=== PATIENT | male | born 1965 | race African-American/Black ===

== ENCOUNTER 2017-01-16 23:36 | Inpatient (IN) | payer OTHER ==
[~2017-01-16] VITALS: Ht 172.7 cm; Wt 125.0 kg
--- NOTE | ~2017-01-16 | CT71 ---
[facility] A Service of [facility] RADIOLOGY TEXT RESULTS PATIENT: ISHMAEL TEJEDA LOCATION: [facility]06-25 : [birth year] UNIT #: [id number] AGE: [address]: Gaetano Rossi MD SEX: M ORDER DR: [id number] [facility] [address] [place], [place] [address] [id number] I MR#: [id number] Acc #: [id number] NAME: ISHMAEL TEJEDA : 1965 SEX: M STUDY DATE/TIME: 01/17/2017 01:40 UNIT: [facility] ROOM: [facility] STUDY DESCRIPTION: CT Head Wo Contrast Attending Physician: Gaetano Rossi M.D. Referring Physician: No Primary Care Physician Ordering Physician: Otis De La Cruz D.O. Primary Care Physician: No Primary Care Physician MEDICAL IMAGING REPORT This report is preliminary unless electronic signature is present EXAM Head CT 01/17 at 0140. INDICATIONS Headache for 1 day with weakness and nausea and vomiting for 2 days. COMPARISON None. TECHNIQUE This CT exam was performed with one or more of the following radiation dose reduction techniques: Automatic exposure control, adjustment of mA and/or kV according to patient size, and iterative reconstruction. FINDINGS Axial images were obtained from the base to the vertex without contrast. There is generalized atrophy. Ventricular size and configuration are within normal limits. There is an old right cerebellar infarct. No acute infarct or hemorrhage is seen. There are no masses. No skull fracture. IMPRESSION Generalized atrophy with an old right cerebellar infarct. No acute findings. Dictated by... Phani Parson Jr., M.D. THIS IS AN ELECTRONICALLY VERIFIED REPORT Phani Parson Jr., M.D. at 01/17/2017 9:40 PM RLK/fredis TD: 01/17/2017 09:50 JOB #: [id number] [facility] A Service [facility] RADIOLOGY TEXT RESULTS PATIENT: ISHMAEL TEJEDA LOCATION: [facility] 4706-25 : [birth year] UNIT #: [id number] AGE: [address]: Gaetano Rossi MD SEX: M ORDER DR: MEDICAL IMAGING REPORT Page 1 of 1 COPY
--- NOTE | ~2017-01-16 | CO ---
Unit #: [id number] #: [id number] Patient: KIN TEJEDA [id number] [address] [place], [place] [address] [id number] I MR#: [id number] NAME: KIN TEJEDA ROOM: 471 Age: 51 Sex: M Admission Date: 01/17/2017 : 1965 Attending Physician: Gaetano Rossi M.D. Consultation Date: 01/17/2017 CONSULTATION REPORT REASON FOR CONSULTATION Renal insufficiency. Thank you very much for asking me to see this patient in consultation. HISTORY OF PRESENT ILLNESS Mr. Kin Tejeda is a 51-year-old male, who presented to the hospital with 2 days history of headache, nausea, vomiting, and not able to keep anything down for couple of days. He came in, started having spiking fevers and then having some right-sided abdominal discomfort as well as some pain in his lower leg. The patient was felt to have a left lower leg cellulitis and was started on Zosyn and Zyvox. The patient was noted upon presentation at 1:00 a.m. last night to have a creatinine of 3.4, potassium of 5.2; at 11:00 a.m. today, it was 51 and 3.9 BUN and creatinine respectively with potassium of 5.6. Because of this, I was asked to see the patient. The patient just was up here visiting from [place]. He says he has seen a kidney doctor before. He cannot tell me why he has abnormal kidney function, but he states he has been towards stage IV. He currently is without any vomiting now. He still had not eaten a lot. His headache has resolved. In the ER, he was noted to have a CT scan of his abdomen and pelvis. This showed an IVC filter, some stranding of both kidneys. No stones. No hydronephrosis. He did have a high exophytic upper part of the right kidney about 1.5 cm. He had a chest x-ray showed cardiomegaly. He denies any nonsteroidal use. He did say he had "gout" a few weeks ago. PAST MEDICAL HISTORY History of insulin-dependent diabetes mellitus, history of hypertension, history of PE/DVT I think in 2012, history of congestive heart failure, history of anemia, history of chronic kidney disease as mentioned above. MEDICATIONS At home include Amaryl, [place], potassium, Lasix, Imdur, Coumadin, insulin, aspirin, Edarbyclor 40/25, carvedilol 25 mg b.i.d., folic acid, clonidine 0.2 b.i.d., hydralazine 100 t.i.d. Here, he was started on Zosyn and Zyvox, his potassium, his Lasix. His Edarbyclor have been on hold. ALLERGIES Include shrimp. FAMILY HISTORY Positive for diabetes and heart disease. SOCIAL HISTORY Unit #: [id number] #: [id number] Patient: KIN TEJEDA He is from [place]. Does not smoke. No alcohol. PHYSICAL EXAMINATION GENERAL: He is alert. VITAL SIGNS: T-max is 103.2, pulse 83 to 119, blood pressure 114 to 140 over 59 to 70. HEENT: Normocephalic and atraumatic. Pupils are equal, round, and reactive to light. Extraocular muscles are intact. Hearing appears to be normal. Mouth is clear. No erythema. No exudate. NECK: Supple. No adenopathy. CARDIAC: He appears to have a regular rhythm without a rub. No S3 or S4. LUNGS: Clear bilaterally. No wheezes, rhonchi, or rales. ABDOMEN: Obese, bowel sounds positive. Nontender. Soft. EXTREMITIES: He has some erythema in his left lower leg. He has no edema in his right lower leg. NEUROLOGIC: Appears to be intact motor and sensory grossly. : Deferred. DIAGNOSTIC STUDIES LABORATORY RESULTS: This afternoon showed a sodium of 133, potassium 5.6, chloride is 106, bicarb is 22, BUN 51, creatinine is 3.9 with a glucose of 208, calcium 7.1. Liver function tests are normal. INR is 2.4 with a PTT of 68. His hemoglobin is 8.2 down to 7.7, white count is 22,900, platelets 242,000. He had 11 bands. UA shows specific gravity of 1.014, 2+ protein, 1+ blood, but 0 to 2 rbc's, 0 to 2 wbc's. IMAGING STUDIES: His chest x-ray and other x-rays has been mentioned above. ASSESSMENT AND PLAN 1. Renal insufficiency. This is a gentleman who probably has chronic kidney disease from his history and probably related to diabetes, but again I do not have any further workup or treatment. Certainly, his creatinine is worse currently from 3.4 to 3.9. Certainly, it could be related to acute tubular necrosis from infection versus hypotension versus other. We will check a bladder scan postvoid residual. Repeat some urine studies including urine sodium, urine eosinophils. We would like to check random protein and creatinine ratio. Check CPK since he has some blood positive, but no rbc's, make sure he has not had rhabdo. We will continue to follow, agree with holding his angiotensin receptor juhi as well as his diuretics for now and continue IV fluids with normal saline. 2. Hyperkalemia secondary to renal insufficiency, hyperglycemia, acidosis, etc. Kayexalate x1. Start oral bicarbonate. Recheck later this evening. 3. Anemia. The patient with decreased hemoglobin down to 7.7. We will recheck later tonight. Needing further workup and treatment per primary. 4. Hypertension. I agree with holding his medications as above. Continue his other medications. We will follow trends and probably restart ARB once things improve for renal protective effect and proteinuria. 5. Diabetes mellitus per primary. 6. History of deep vein thrombosis and pulmonary embolism. The patient does have an increased PTT. I am not sure he got heparin where. We will go ahead and check an ROSSY, anticardiolipin antibody, it looks anticoagulant. Dictated by... Unit #: [id number] #: [id number] Patient: KIN TEJEDA M.D. WAD/gennaro TD: 01/18/2017 05:46 JOB #: [id number] CONSULTATION REPORT Page 1 of 1 X Pamela Mayer MD X CONSULTATION REPORT
--- NOTE | ~2017-01-16 | CT4 ---
[facility] A Service of [facility] & [facility] RADIOLOGY TEXT RESULTS PATIENT: ISHMAEL TEJEDA LOCATION: [facility] 471-01 : [birth year] UNIT #: [id number] AGE: [address]: Gaetano Rossi MD SEX: M ORDER DR: [id number] [facility] [address] [place], [place] [address] [id number] I MR#: [id number] Acc #: [id number] NAME: ISHMAEL TEJEDA : 1965 SEX: M STUDY DATE/TIME: 01/17/2017 01:46 UNIT: [facility] ROOM: 471 STUDY DESCRIPTION: CT Abd and Pelv Wo Cont Attending Physician: Gaetano Rossi M.D. Referring Physician: Primary Care Physician No Ordering Physician: Otis De La Cruz D.O. Primary Care Physician: Primary Care Physician No MEDICAL IMAGING REPORT This report is preliminary unless electronic signature is present EXAM CT abdomen and pelvis 01/17/2017 at 01:46 INDICATION Generalized abdominal pain with weakness, nausea, and vomiting for 2 days. TECHNIQUE Axial noncontrast images were obtained through the abdomen and pelvis. Multiplanar reformats were obtained. No comparison. This CT examination was performed with one or more of the following radiation dose reduction techniques: automatic exposure control, adjustment of mA and/or kV according to patient size, and iterative reconstruction. FINDINGS ABDOMEN: Heart is enlarged. Lung bases are clear. Gallbladder is normal. No biliary obstruction is seen. IVC filter is present. No renal or ureteral stones are seen. There is no hydronephrosis. There is some fat stranding around both kidneys which extends to some degree along the course of the ureters. This can be seen as a normal finding but can also reflect urinary tract infection. Correlate with urinalysis results. Unenhanced solid organs otherwise are normal. The unopacified GI tract is normal. PELVIS: There are no lower ureteral stones. The bladder is normal. Unopacified GI tract is grossly normal. There is no free fluid. The appendix is not definitely seen, but there is nothing to suggest acute appendicitis. There are bilateral L5 pars defects without spondylolisthesis at L5-S1. IMPRESSION 1. No renal or ureteral stones. No hydronephrosis. 2. Fat stranding around both kidneys and at least partially along the STS. [facility] A Service of [facility] RADIOLOGY TEXT RESULTS PATIENT: ISHMAEL TEJEDA LOCATION: [facility] 471-01 : [birth year] UNIT #: [id number] AGE: [address]: Gaetano Rossi MD SEX: M ORDER DR: course of both ureters. While this can be seen as a normal finding, it can also be indicative of pyelonephritis in an ascending infection. Correlate with urinalysis results. 3. Not mentioned above is a exophytic lesion from the upper pole of the right kidney measuring about 1.5 cm. This is probably a cyst. Nonemergent renal ultrasound is recommended for follow up purposes. 4. Grossly normal unopacified GI tract. The appendix is not clearly seen, but there is nothing to suggest acute appendicitis. 5. IVC filter in place. Dictated by... Phani Parson Jr., M.D. THIS IS AN ELECTRONICALLY VERIFIED REPORT Phani Parson Jr., M.D. at 01/17/2017 9:40 PM AMARJIT/hay TD: 01/17/2017 10:19 JOB #: [id number] MEDICAL IMAGING REPORT Page 1 of 1 COPY
--- NOTE | ~2017-01-16 | DS ---
Unit #: [id number] #: [id number] Patient: ISHMAEL TEJEDA [id number] [address] [address] [id number] I MR#: [id number] NAME: ISHMAEL TEJEDA ROOM: 221 Age: 51 Sex: M Admission Date: 01/17/2017 : 1965 Discharge Date: 01/23/2017 Attending Physician: Kathy Vila M.D. Referring Physician: No Primary Care Physician Primary Care Physician: No Primary Care Physician DISCHARGE SUMMARY DISCHARGE DIAGNOSES 1. Acute kidney injury. 2. Chronic kidney disease stage 4. 3. Left leg wound with cellulitis. 4. Hypertension uncontrolled. 5. History of chronic diastolic heart failure. 6. Glaucoma. 7. History of pulmonary embolism and deep venous thrombosis, status post IVC filter on Coumadin, currently supratherapeutic INR, hold Coumadin until recheck by primary care physician. 8. Right kidney lesion, likely cyst. Patient needs to follow with primary care physician for that as an outpatient. Cyst is very small. 9. Hyperkalemia secondary to acute kidney injury. 10. Metabolic acidosis secondary to acute kidney injury. 11. Hyperuricemia. 12. Hypocalcemia. 13. Mild to moderate protein malnutrition. 14. Iron deficiency anemia. 15. Mild to moderate protein malnutrition. 16. Iron deficiency anemia and also could be from chronic kidney disease. CONSULTANTS Dr. Mayer. PROCEDURES None. DIAGNOSTIC STUDIES LABORATORY DATA: Sodium 138, potassium 5.3, carbon dioxide 21, BUN 74, creatinine 3.9, calcium 8.0, INR 6.1, WBC 11.7, hemoglobin 8.3, platelets 215. Blood cultures negative. Occult blood negative. Uric acid 11.3. Wound cultures are growing MRSA. IMAGING STUDIES: Ultrasound of the kidneys shows a small right upper pole renal cyst. Both kidneys are not obstructed. Ultrasound of the lower extremities are negative for DVT. ALLERGIES Shrimp. DISCHARGE MEDICATIONS 1. Prednisone tapering dose. 2. Sodium bicarbonate 1300 mg p.o. b.i.d. Unit #: [id number] #: [id number] Patient: ISHMAEL TEJEDA 3. Combigan eye drops b.i.d. 4. Flovent 250 mcg inhalation daily at bedtime. 5. Hold the Coumadin on 01/23/2017 and 01/24/2017. Recheck PT and INR on 01/25/3017 and follow with PCP with results. Resume Coumadin if INR is less than or equal to 3.0. 6. Coreg 25 p.o. b.i.d. 7. Lasix 80 daily. 8. Clonidine 0.2 mg p.o. b.i.d. 9. Hydralazine 100 p.o. three times daily. 10. Humalog 75/25 20 units subcu b.i.d. 11. Ferrous gluconate 324 mg b.i.d. [id number]. 12. Santyl apply topically. 13. Aspirin 81 daily. 14. Lortab 5 mg q.4-6 p.r.n. pain. 15. Isosorbide mononitrate ER 60 mg p.o. daily. 16. Nitroglycerin 0.4 sublingual p.r.n. chest pain. 17. Folic acid 1 mg daily. 18. Clindamycin 300 p.o. q.8 for three more days. HOSPITALIZATION COURSE 51-year-old admitted because of left leg cellulitis. Acute kidney injury with a chronic kidney disease, stage 4 with hyperkalemia and metabolic acidosis. Patent is seen by nephrology. Ultrasound is negative for obstruction. Patient received IV fluids. Creatinine is back to his baseline, which is 3.9. He has stage 4 chronic kidney disease. Patient needs close monitoring by his mexican food maker hand as an outpatient. Continue the bicarbonate p.o. Left leg wound with cellulitis: Patient is seen by a surgeon. Growing MRSA IV Clindamycin started. Patient will be discharged on p.o. Clindamycin and followed with PCP and also follow with LSA in 8-10 days time. Continue with local wound, as per LSA recommendations. History of DVT and PE: Patient is on Coumadin. Currently supratherapeutic INR. Hold Coumadin today and tomorrow and recheck PT and INR on 01/25/2017, follow with PCP results. Patient did not live in [place]. I did arrange for home health but he wants to see his own doctors. I recommend closely. Strictly that he needs to have a PT/INR checked closely. He understands the recommendations. Her verbalized that he understood it. Hypertension uncontrolled: Resume all his medicines. Nephrology was closely following. Anemia, secondary to iron deficiency and also chronic kidney disease. Patient received iron in September (1) . Follow with PCP. Okay to discharge home as per LSA and nephrology. DISCHARGE INSTRUCTIONS 1. Discharge home with home health. 2. PT/INR on 01/25/2017, follow with PCP with results. Hold Coumadin today and on 01/24/2017. 3. Follow with his mexican food maker hand in two to three weeks time for chronic kidney disease, stage 4. 4. Please note that patient needs close monitoring of his PT/INR and close monitoring of his creatinine by his PCP or his mexican food maker hand. Unit #: [id number] #: [id number] Patient: ISHMAEL TEJEDA 5. Discharge time taken is 35 minutes. Dictated by... Praveen Beebe/irma TD: 01/24/2017 07:41 JOB #: [id number] DISCHARGE SUMMARY Page 1 of 1 X Kathy Vila MD X DISCHARGE SUMMARY
--- NOTE | ~2017-01-16 | US85 ---
[facility] A Service [facility] RADIOLOGY TEXT RESULTS PATIENT: ISHMAEL TEJEDA LOCATION: [place] [address] : [birth year] UNIT #: [id number] AGE: [address]: Gaetano Rossi MD SEX: M ORDER DR: [id number] [place] [id number] [facility]. [place], [place] [address] [id number] I MR#: [id number] Acc #: [id number] NAME: ISHMAEL TEJEDA : 1965 SEX: M STUDY DATE/TIME: 01/18/2017 16:38 UNIT: [facility] ROOM: [facility] STUDY DESCRIPTION: LE Veins Unilat or Ltd Stdy Attending Physician: Gaetano Rossi M.D. Referring Physician: No Primary Care Physician Ordering Physician: Gaetano Rossi M.D. Primary Care Physician: No Primary Care Physician MEDICAL IMAGING REPORT This report is preliminary unless electronic signature is present EXAM Ultrasound lower extremities/veins unilateral or limited study. CLINICAL HISTORY Left lower extremity swelling and pain for 2 weeks. Remote history of DVT. COMPARISON None available. TECHNIQUE Venous ultrasound examination of the left lower extremity was performed using grayscale, spectral Doppler and color flow Doppler imaging. FINDINGS The examination is negative. There is no evidence of left lower extremity deep venous thrombus from the groin to the lower calf. Visualized greater saphenous vein is also patent. IMPRESSION Negative examination. No evidence of left lower extremity DVT. Dictated by... Jacinto Hutchinson M.D. THIS IS AN ELECTRONICALLY VERIFIED REPORT Jacinto Hutchinson M.D. at 01/18/2017 9:32 PM MADDIE/homero TD: 01/18/2017 20:16 JOB #: [id number] [facility] A Service [facility] RADIOLOGY TEXT RESULTS PATIENT: ISHMAEL TEJEDA LOCATION: [facility] : 61 UNIT #: [id number] AGE: [address]: Gaetano Rossi MD SEX: M ORDER DR: MEDICAL IMAGING REPORT Page 1 of 1 COPY
--- NOTE | ~2017-01-16 | HP ---
Unit #: [id number] #: [id number] Patient: ISHMAEL TEJEDA [id number] [address] [address] [id number] I MR#: [id number] NAME: ISHMAEL TEJEDA ROOM: 471 Age: 51 Sex: M Admission Date: 01/17/2017 : 1965 Attending Physician: Mariama Lemus M.D. Referring Physician: No Primary Care Physician Primary Care Physician: No Primary Care Physician HISTORY AND PHYSICAL CHIEF COMPLAINT Left leg wound with cellulitis, fevers, nausea, vomiting and headache. HISTORY This pleasant 51-year-old male with IDDM, hypertension, previous PE and DVT, chronic kidney disease, is admitted for a fever. The patient states that he was well until two days ago when he developed nausea, vomiting, frontal headache with fever, sweats, chills and some right-sided abdominal discomfort, which was transient. He presented to this emergency department early this morning with a temperature of 103.2. He complains of left leg pain. On examination he has a wound over the distal left leg, and there is significant erythema noted with tenderness. In the ER he was given Tylenol, boluses with saline, given Zofran and morphine. Currently is feeling somewhat improved. He has a hematocrit of 8.2, denies melena or hematochezia, states that he has chronic anemia. His INR is therapeutic at 2.4. PAST MEDICAL HISTORY 1. PE/DVT 2012, status post IVC filter placement, anticoagulated. 2. Gout. 3. IDDM since 2012. 4. Essential hypertension. 5. Glaucoma. 6. History of congestive heart failure, with reportedly negative cardiac catheterization for CAD. 7. Stage 4 chronic kidney disease. 8. Chronic anemia. 9. Left eye surgery. 10. Hernia repair. ALLERGIES Shrimp. HOME MEDICATIONS Nitroglycerin p.r.n.; Flovent nasal spray; aspirin 81 mg daily; Edarbyclor 40/25 daily; carvedilol 25 mg b.i.d.; folic acid 1 mg daily; clonidine 0.2 mg b.i.d. p.r.n.; potassium 10 mEq daily; Amaryl 4 mg daily; [place] 5/325 q.4-6 hours as needed; hydralazine 100 mg t.i.d.; Lasix 80 mg daily; Imdur 60 mg daily; Coumadin 5 mg Sunday, Sunday and Sunday with 2.5 mg the rest of the week; Combigan eye drops 1 drop OU b.i.d.; Humalog mix 75/25 25 units subcu b.i.d. FAMILY HISTORY Unit #: [id number] #: [id number] Patient: ISHMAEL TEJEDA Diabetes mellitus and CAD. SOCIAL HISTORY The patient is visiting from [place]. He is a lifelong nonsmoker and does not drink alcohol. REVIEW OF SYSTEMS Notable for left leg pain, nausea, vomiting, headache, fever, sweats, chills, PE/DVT, gout, diabetes, hypertension, congestive heart failure, chronic kidney disease, anemia, above mentioned surgeries. All other systems were reviewed and otherwise negative. PHYSICAL EXAMINATION GENERAL: Pleasant, obese, 51-year-old male currently in no acute distress. VITAL SIGNS: Temperature 103.2, pulse 119, respirations 20, initial blood pressure 115/63, O2 saturation is 99% on room air. HEENT: Eyes - PERRLA. Extraocular muscles are intact. Pharynx is benign with poor dentition. NECK: Supple without adenopathy or thyromegaly. CHEST: Clear. CARDIAC: Normal S1 and S2 without S3, S4 or murmur. ABDOMEN: Bowel sounds are present. No hepatosplenomegaly, tenderness, or masses. EXTREMITIES: Notable for an open superficial distal left leg lesion with surrounding cellulitis. Pedal pulses are present. No ulcers on the feet. NEUROLOGIC: Patient is awake, alert, and oriented. Cranial nerves are intact. Equal strength throughout. DIAGNOSTIC STUDIES ADMISSION LABS: Hematocrit is 25.7, normal MCV, white blood count is 21.3, normal platelet count, 3 bands noted. INR 2.4. SMA 12 - glucose 203, BUN 51, creatinine 3.4, potassium 5.2, CO2 21, lactic acid is normal. Cardiac markers are negative. Urine - 2+ protein but no white cells or red cells. IMAGING STUDIES: Head CT - old right cerebellar infarct. Chest x-ray - cardiomegaly, some central vascular congestion. CT scan of the abdomen and pelvis show some fat stranding around the kidneys bilaterally. There is also an exophytic lesion right kidney, probably a cyst, although patient will need at some port a renal ultrasound. ASSESSMENT 1. Left wound with cellulitis, fevers, nausea, vomiting, and headache. 2. IDDM. 3. Stage 4 chronic kidney disease. 4. Essential hypertension. 5. History of congestive heart failure. Patient denies CAD. 6. Glaucoma. 7. History of PE and DVT, status IVC filter, anticoagulated. 8. Lesion in the right kidney, probably a cyst but the patient needs an ultrasound non-emergently. PLANS 1. IV fluids. 2. Zosyn and Zyvox pending blood and wound cultures. Unit #: [id number] #: [id number] Patient: ISHMAEL TEJEDA 3. Will ask for Bactroban ointment and dressing changes. 4. Hold diuretics until diet is advanced. 5. Recheck labs at noon and discontinue potassium. 6. Adjust insulin until diet is advanced. 7. Will hold Edarbyclor until diet is advanced. Dictated by Praveen Franco/ts TD: 01/17/2017 06:06 JOB #: [id number] HISTORY AND PHYSICAL Page 1 of 1 X Mariama Lemus MD X HISTORY AND PHYSICAL
--- NOTE | ~2017-01-16 | CR252 ---
[facility] A Service of [facility] RADIOLOGY TEXT RESULTS PATIENT: ISHMAEL TEJEDA LOCATION: [facility]1-01 : 61 UNIT #: [id number] AGE: [address]: Gaetano Rossi MD SEX: M ORDER DR: [id number] [facility] [address] [place], [place] [address] [id number] I MR#: [id number] Acc #: [id number] NAME: ISHMAEL TEJEDA : 1965 SEX: M STUDY DATE/TIME: 01/17/2017 01:18 UNIT: [facility] ROOM: [facility] STUDY DESCRIPTION: CR Tibia and Fibula 2 Views Lt Attending Physician: Gaetano Rossi M.D. Referring Physician: Primary Care Physician No Ordering Physician: Otis De La Cruz D.O. Primary Care Physician: Primary Care Physician No MEDICAL IMAGING REPORT This report is preliminary unless electronic signature is present EXAM Left tib-fib, 01/17 at 01:18 INDICATION Garcia wounds with pain for 3 days. History of diabetes. FINDINGS AP and lateral views of the left lower leg were obtained. There is no fracture or malalignment. There is no soft tissue gas or radiopaque foreign body. IMPRESSION Negative left lower leg. Dictated by... Phani Parson Jr., M.D. THIS IS AN ELECTRONICALLY VERIFIED REPORT Phani Parson Jr., M.D. at 01/17/2017 9:40 PM AMARJIT/lavon TD: 01/17/2017 09:46 JOB #: [id number] MEDICAL IMAGING REPORT Page 1 of 1 COPY
--- NOTE | ~2017-01-16 | US77 ---
[facility] A Service of [facility] & [facility] / [facility] RADIOLOGY TEXT RESULTS PATIENT: ISHMAEL TEJEDA LOCATION: [place] [address]- : [birth year] UNIT #: [id number] AGE: [address]: Gaetano Rossi MD SEX: M ORDER DR: [id number] [facility] [address] [place], [place] [address] [id number] I MR#: [id number] Acc #: [id number] NAME: ISHMAEL TEJEDA : 1965 SEX: M STUDY DATE/TIME: 01/17/2017 19:19 UNIT: [facility] ROOM: [facility] STUDY DESCRIPTION: US Kidney Bilateral Complete Attending Physician: Gaetano Rossi M.D. Referring Physician: Primary Care Physician No Ordering Physician: Edy Mayer M.D. Primary Care Physician: Primary Care Physician No MEDICAL IMAGING REPORT This report is preliminary unless electronic signature is present EXAM Renal ultrasound 01/17/2017 19:19 INDICATION Chronic kidney disease stage IV. Hypodense lesion seen in right upper kidney on CT scan performed earlier today. Elevated creatinine. Low GFR of 19. FINDINGS Sonographic evaluation is performed of the kidneys in multiple planes. Comparison made with CT abdomen from 01/17/2017 at 0146 hours. The right kidney measures 12.6 cm in ifxz-kk-[id number] length. It contains a 1.2 cm cyst in the upper pole corresponding to the lesion on CT. Left kidney measures about 12.4 cm in nztn-jy-ccsh length. Both kidneys are otherwise unremarkable and nonobstructed. Urinary bladder grossly normal. IMPRESSION Small right upper pole renal cyst corresponding to CT abnormality. Both kidneys are nonobstructed. Dictated by... Phani Parson Jr., M.D. THIS IS AN ELECTRONICALLY VERIFIED REPORT Phani Parson Jr., M.D. at 01/18/2017 7:18 PM AMARJIT/hay TD: 01/18/2017 06:31 JOB #: [id number] MEDICAL IMAGING REPORT Page 1 of 1 COPY
--- NOTE | ~2017-01-16 | CR72 ---
[facility] A Service of [facility] & [facility] RADIOLOGY TEXT RESULTS PATIENT: ISHMAEL TEJEDA LOCATION: [facility]- : [birth year] UNIT #: [id number] AGE: [address]: Gaetano Rossi MD SEX: M ORDER DR: [id number] [facility] [address] [place], [place] [address] [id number] I MR#: [id number] Acc #: [id number] NAME: ISHMAEL TEJEDA : 1965 SEX: M STUDY DATE/TIME: 12/18/2016 UNIT: [facility] ROOM: [facility] STUDY DESCRIPTION: CR Chest Single View Portable Attending Physician: Gaetano Rossi M.D. Referring Physician: Primary Care Physician No Ordering Physician: Otis De La Cruz D.O. Primary Care Physician: Primary Care Physician No MEDICAL IMAGING REPORT This report is preliminary unless electronic signature is present EXAM Portable chest 01/17 at 01:16 INDICATIONS Weakness and shortness of air 3 days. History of CHF. FINDINGS AP portable chest was obtained. No comparison. Heart is enlarged. There is some central vascular congestion. The lungs are clear. No pneumothorax. IMPRESSION Cardiomegaly with some central vascular congestion. Dictated by... Phani Parson Jr., M.D. THIS IS AN ELECTRONICALLY VERIFIED REPORT Phani Parson Jr., M.D. at 01/17/2017 9:39 PM AMARJIT/carlene TD: 01/17/2017 09:45 JOB #: [id number] MEDICAL IMAGING REPORT Page 1 of 1 COPY
[2017-01-17 01:41] LABS: POC - CKMB 1.2 ng/mL (0.0-7.9); POC - TROPONIN <0.05 ng/mL (<=0.05)
[2017-01-17 02:12] LABS: BASOPHIL% 0.2 % (0-2.5); EOSINOPHIL% 0.1 % (0.0-7.0); HEMATOCRIT 25.7 % (38.0-50.0); HEMOGLOBIN 8.2 gm/dL (13.0-16.0); LYMPHOCYTE# 1.1 X10e3 (1.0-3.5); MEAN CELL VOLUME 87.1 FL (83-96); MEAN CORPUSCULAR HEMOGLOBIN 27.7 PG (28-34); MEAN CORPUSCULAR HGB CONC 31.8 g/dL (30-36); MEAN PLATELET VOLUME 8.7 FL (6.5-11.5); MONOCYTE# 1.2 X10e3 (0-1.0); MONOCYTE% 5.8 % (3.0-12.0); NEUTROPHIL# 18.9 X10e3 (1.5-7.1); NEUTROPHIL% 88.9 % (40-75); PLATELET COUNT 278 X10e3 (140-420); RED BLOOD COUNT 2.94 X10e (3.90-5.60); RED CELL DISTRIBUTION WIDTH 16.3 % (11.0-15.5); WHITE BLOOD COUNT 21.3 X10e3 (4.0-10.5)
[2017-01-17 02:14] LABS: DIFF IND YES
[2017-01-17 02:22] LABS: INR 2.4; PARTIAL THROMBOPLASTIN TIME 68.5 SECONDS (23.5-31.3); PROTHROMBIN TIME (PATIENT) 25.8 SECONDS (10.0-11.7)
[2017-01-17 02:29] LABS: PLATELET ESTIMATE NORMAL (NORMAL)
[2017-01-17 02:30] LABS: ALBUMIN SERUM 3.5 g/dL (3.5-5.0); ANISOCYTOSIS SL; BILIRUBIN, DIRECT 0.1 mg/dL (0.0-0.2); BILIRUBIN,INDIRECT 0.6 mg/dL (0.0-0.9); BILIRUBIN,TOTAL 0.7 mg/dL (0.2-2.0); CALCIUM SERUM 8.6 mg/dL (8.4-10.2); CREATININE SERUM 3.4 mg/dL (0.6-1.4); GLOM FILT RATE Estimated 22.6 mL/min (>60); HYPOCHROMIA SL; POTASSIUM 5.2 mmol/L (3.5-5.1); PROTEIN TOTAL SERUM 8.3 g/dL (6.0-8.3)
[2017-01-17] MEDS ORDERED: NITROGLYGERIN0.4 MG SL (02:49)
[2017-01-17] MEDS ORDERED: ASPIRIN81 MG PO (02:50)
[2017-01-17] MEDS ORDERED: FLOVENT7.9 GM (02:50)
[2017-01-17] MEDS ORDERED: EDARBYCLOR 40-1 EAC1 PO (02:51)
[2017-01-17] MEDS ORDERED: FOLIC ACID1 MG PO (02:51)
[2017-01-17] MEDS ORDERED: CARVEDILOL25 M1 PO (02:51)
[2017-01-17] MEDS ORDERED: CLONIDINE PO (02:52)
[2017-01-17] MEDS ORDERED: POTASSIUM CHLO10 MEQ PO (02:53)
[2017-01-17] MEDS ORDERED: AMARYL PO (02:53)
[2017-01-17] MEDS ORDERED: HYDROCODON-ACE1 EAC7 PO (02:53)
[2017-01-17] MEDS ORDERED: LASIX80 MG PO (02:54)
[2017-01-17] MEDS ORDERED: HYDRALAZINE HC100 MG PO (02:54)
[2017-01-17] MEDS ORDERED: ISOSORBIDE MONO60 M1 PO (02:54)
[2017-01-17] MEDS ORDERED: JANTOVEN5 MG PO (02:55)
[2017-01-17] MEDS ORDERED: COMBIGAN EYE DRO5 ML OU (02:55)
[2017-01-17] MEDS ORDERED: HUMALOG MI100 UNIT/5 SUBQ (03:05)
[2017-01-17 03:21] LABS: URINE SOURCE CLEAN CATCH
[2017-01-17 03:37] LABS: URINE APPEARANCE CLEAR; URINE BILIRUBIN NEG (NEG); URINE BLOOD 1+ (NEG); URINE COLOR YELLOW; URINE GLUCOSE NEG (NEG); URINE KETONE NEG (NEG); URINE LEUKOCYTE ESTERASE NEG (NEG); URINE NITRATE NEG (NEG); URINE PROTEIN 2+ (NEG); URINE SPECIFIC GRAVITY 1.014 (1.003-1.035); URINE UROBILINOGEN 0.2 MG/DL (NEG)
[2017-01-17 03:41] LABS: URBCS1 AUWI 0-2 /[HPF] (0-2); URINE BACTERIA AUWI NEG (NEGATIVE); URINE SQUAMOUS EPITHELIAL CELL NONE SEEN /[HPF]; UWBCS1 AUWI 0-2 (0-5)
[2017-01-17 03:42] LABS: INFLUENZA A NEG (NEG); INFLUENZA B NEG (NEG)
[2017-01-17 03:55] LABS: CULTURE INDICATED? NO; URINE GRANULAR CAST 0-2 /[HPF]
[2017-01-17 08:30] LABS: BASOPHIL# 0.1 X10e3 (0-0.3); BASOPHIL% 0.3 % (0-2.5); EOSINOPHIL% 0.1 % (0.0-7.0); HEMATOCRIT 24.1 % (38.0-50.0); HEMOGLOBIN 7.7 gm/dL (13.0-16.0); LYMPHOCYTE# 1.6 X10e3 (1.0-3.5); LYMPHOCYTE% 6.9 % (17.0-45.0); MEAN CORPUSCULAR HEMOGLOBIN 28.3 PG (28-34); MEAN CORPUSCULAR HGB CONC 32.1 g/dL (30-36); MEAN PLATELET VOLUME 8.7 FL (6.5-11.5); MONOCYTE# 1.5 X10e3 (0-1.0); MONOCYTE% 6.6 % (3.0-12.0); NEUTROPHIL# 19.7 X10e3 (1.5-7.1); NEUTROPHIL% 86.1 % (40-75); PLATELET COUNT 242 X10e3 (140-420); RED BLOOD COUNT 2.74 X10e (3.90-5.60); RED CELL DISTRIBUTION WIDTH 16.2 % (11.0-15.5); WHITE BLOOD COUNT 22.9 X10e3 (4.0-10.5)
[2017-01-17 08:46] LABS: INR 2.3; PROTHROMBIN TIME (PATIENT) 24.7 SECONDS (10.0-11.7)
[2017-01-17 08:51] LABS: BUN/CREATININE RATIO 14.16; CALCIUM SERUM 7.9 mg/dL (8.4-10.2); CREATININE SERUM 3.6 mg/dL (0.6-1.4); GLOM FILT RATE Estimated 21.1 mL/min (>60)
[2017-01-17 08:52] LABS: DIFF IND YES
[2017-01-17 09:04] LABS: POTASSIUM 5.5 mmol/L (3.5-5.1)
[2017-01-17 12:03] LABS: BUN/CREATININE RATIO 13.07; CALCIUM SERUM 7.6 mg/dL (8.4-10.2); CREATININE SERUM 3.9 mg/dL (0.6-1.4); GLOM FILT RATE Estimated 19.1 mL/min (>60)
[2017-01-17 12:09] LABS: POTASSIUM 5.6 mmol/L (3.5-5.1)
[2017-01-17 12:48] LABS: ANISOCYTOSIS SL; PLATELET ESTIMATE NORMAL (NORMAL)
[2017-01-17 18:21] LABS: HEMATOCRIT 20.7 % (38.0-50.0); MEAN CELL VOLUME 87.9 FL (83-96); MEAN CORPUSCULAR HEMOGLOBIN 28.6 PG (28-34); MEAN CORPUSCULAR HGB CONC 32.5 g/dL (30-36); MEAN PLATELET VOLUME 7.9 FL (6.5-11.5); RED BLOOD COUNT 2.36 X10e (3.90-5.60); RED CELL DISTRIBUTION WIDTH 16.4 % (11.0-15.5); WHITE BLOOD COUNT 18.7 X10e3 (4.0-10.5)
[2017-01-17 18:25] LABS: HEMOGLOBIN 6.7 gm/dL (13.0-16.0)
[2017-01-17 18:42] LABS: BUN/CREATININE RATIO 13.68; CREATININE SERUM 3.8 mg/dL (0.6-1.4); GLOM FILT RATE Estimated 19.7 mL/min (>60); POTASSIUM 5.1 mmol/L (3.5-5.1)
[2017-01-17 19:26] LABS: URINE APPEARANCE CLOUDY; URINE BILIRUBIN NEG (NEG); URINE BLOOD TRACE (NEG); URINE COLOR YELLOW; URINE GLUCOSE NEG (NEG); URINE KETONE NEG (NEG); URINE LEUKOCYTE ESTERASE NEG (NEG); URINE NITRATE NEG (NEG); URINE PROTEIN 2+ (NEG); URINE SPECIFIC GRAVITY 1.017 (1.003-1.035)
[2017-01-17 19:28] LABS: URBCS1 AUWI 0-2 /[HPF] (0-2); URINE BACTERIA AUWI NEG (NEGATIVE); URINE SQUAMOUS EPITHELIAL CELL NONE SEEN /[HPF]
[2017-01-17 19:33] LABS: CREATININE,RANDOM URINE 181 mg/dL; SODIUM URINE RANDOM 35 mmol/L; TOTAL PROTEIN,RANDOM URINE 96 mg/dl (<10)
[2017-01-18 02:34] LABS: HEMATOCRIT 25.1 % (38.0-50.0); HEMOGLOBIN 7.9 gm/dL (13.0-16.0); MEAN CELL VOLUME 87.7 FL (83-96); MEAN CORPUSCULAR HEMOGLOBIN 27.5 PG (28-34); MEAN CORPUSCULAR HGB CONC 31.4 g/dL (30-36); RED BLOOD COUNT 2.86 X10e (3.90-5.60); WHITE BLOOD COUNT 18.2 X10e3 (4.0-10.5)
[2017-01-18 02:52] LABS: INR 2.6; PARTIAL THROMBOPLASTIN TIME 74.5 SECONDS (23.5-31.3); PROTHROMBIN TIME (PATIENT) 28.2 SECONDS (10.0-11.7)
[2017-01-18 03:07] LABS: BILIRUBIN,TOTAL 0.6 mg/dL (0.2-2.0); BUN/CREATININE RATIO 13.68; CALCIUM SERUM 7.7 mg/dL (8.4-10.2); CREATININE SERUM 3.8 mg/dL (0.6-1.4); GLOM FILT RATE Estimated 19.7 mL/min (>60); PHOSPHOROUS 3.3 mg/dL (2.5-4.6); POTASSIUM 4.9 mmol/L (3.5-5.1); PROTEIN TOTAL SERUM 7.6 g/dL (6.0-8.3); URIC ACID 10.4 mg/dL (2.6-7.2)
[2017-01-18] MEDS ORDERED: FLOVENT DISKU250 MCG INH (23:24)
[2017-01-19 02:39] LABS: BASOPHIL% 0.3 % (0-2.5); EOSINOPHIL# 0.1 X10e3 (0-0.7); EOSINOPHIL% 0.6 % (0.0-7.0); HEMATOCRIT 22.3 % (38.0-50.0); HEMOGLOBIN 7.1 gm/dL (13.0-16.0); LYMPHOCYTE# 1.1 X10e3 (1.0-3.5); LYMPHOCYTE% 6.9 % (17.0-45.0); MEAN CELL VOLUME 87.5 FL (83-96); MEAN CORPUSCULAR HEMOGLOBIN 27.7 PG (28-34); MEAN CORPUSCULAR HGB CONC 31.6 g/dL (30-36); MEAN PLATELET VOLUME 8.5 FL (6.5-11.5); MONOCYTE# 1.1 X10e3 (0-1.0); MONOCYTE% 7.2 % (3.0-12.0); NEUTROPHIL# 12.9 X10e3 (1.5-7.1); PLATELET COUNT 197 X10e3 (140-420); RED BLOOD COUNT 2.55 X10e (3.90-5.60); RED CELL DISTRIBUTION WIDTH 16.3 % (11.0-15.5); WHITE BLOOD COUNT 15.2 X10e3 (4.0-10.5)
[2017-01-19 02:40] LABS: DIFF IND NO
[2017-01-19 02:50] LABS: INR 2.8; PROTHROMBIN TIME (PATIENT) 30.1 SECONDS (10.0-11.7)
[2017-01-19 03:01] LABS: BUN/CREATININE RATIO 13.94; CALCIUM SERUM 7.8 mg/dL (8.4-10.2); CREATININE SERUM 3.8 mg/dL (0.6-1.4); GLOM FILT RATE Estimated 19.7 mL/min (>60); POTASSIUM 4.7 mmol/L (3.5-5.1)
[2017-01-19 15:19] LABS: HEMATOCRIT 21.5 % (38.0-50.0); MEAN CELL VOLUME 87.8 FL (83-96); MEAN CORPUSCULAR HEMOGLOBIN 28.6 PG (28-34); MEAN CORPUSCULAR HGB CONC 32.5 g/dL (30-36); MEAN PLATELET VOLUME 8.7 FL (6.5-11.5); RED BLOOD COUNT 2.45 X10e (3.90-5.60); RED CELL DISTRIBUTION WIDTH 16.5 % (11.0-15.5); WHITE BLOOD COUNT 14.7 X10e3 (4.0-10.5)
[2017-01-19 18:48] LABS: IRON SERUM 13 ug/dL (45-182); TOTAL IRON BINDING CAPACITY 144 ug/dL (252-460); TRANSFERRIN 103 mg/dL (180-329); TRANSFERRIN SATURATION 9 % (20-50)
[2017-01-20 03:16] LABS: HEMATOCRIT 19.7 % (38.0-50.0); MEAN CELL VOLUME 87.4 FL (83-96); MEAN CORPUSCULAR HEMOGLOBIN 28.8 PG (28-34); MEAN PLATELET VOLUME 8.9 FL (6.5-11.5); RED BLOOD COUNT 2.25 X10e (3.90-5.60); RED CELL DISTRIBUTION WIDTH 16.3 % (11.0-15.5); WHITE BLOOD COUNT 13.8 X10e3 (4.0-10.5)
[2017-01-20 03:20] LABS: HEMOGLOBIN 6.5 gm/dL (13.0-16.0)
[2017-01-20 03:32] LABS: INR 3.1; PARTIAL THROMBOPLASTIN TIME 82.5 SECONDS (23.5-31.3); PROTHROMBIN TIME (PATIENT) 33.5 SECONDS (10.0-11.7)
[2017-01-20 03:57] LABS: ALBUMIN SERUM 2.4 g/dL (3.5-5.0); BILIRUBIN,TOTAL 0.5 mg/dL (0.2-2.0); CALCIUM SERUM 7.6 mg/dL (8.4-10.2); GLOM FILT RATE Estimated 14.2 mL/min (>60); POTASSIUM 5.1 mmol/L (3.5-5.1); PROTEIN TOTAL SERUM 6.2 g/dL (6.0-8.3)
[2017-01-21 04:17] LABS: BUN/CREATININE RATIO 12.94; CREATININE SERUM 5.1 mg/dL (0.6-1.4); GLOM FILT RATE Estimated 13.8 mL/min (>60)
[2017-01-22 02:57] LABS: BASOPHIL% 0.3 % (0-2.5); DIFF IND YES; HEMATOCRIT 24.4 % (38.0-50.0); HEMOGLOBIN 8.1 gm/dL (13.0-16.0); LYMPHOCYTE# 1.1 X10e3 (1.0-3.5); LYMPHOCYTE% 7.7 % (17.0-45.0); MEAN CELL VOLUME 86.8 FL (83-96); MEAN CORPUSCULAR HGB CONC 33.4 g/dL (30-36); MEAN PLATELET VOLUME 8.4 FL (6.5-11.5); MONOCYTE# 1.3 X10e3 (0-1.0); MONOCYTE% 8.9 % (3.0-12.0); NEUTROPHIL# 11.7 X10e3 (1.5-7.1); NEUTROPHIL% 83.1 % (40-75); PLATELET COUNT 200 X10e3 (140-420); RED BLOOD COUNT 2.81 X10e (3.90-5.60); RED CELL DISTRIBUTION WIDTH 15.9 % (11.0-15.5); WHITE BLOOD COUNT 14.1 X10e3 (4.0-10.5)
[2017-01-22 03:13] LABS: ANISOCYTOSIS SL; OVALOCYTES PRESENT; PLATELET ESTIMATE NORMAL (NORMAL)
[2017-01-22 03:17] LABS: BUN/CREATININE RATIO 16.38; CALCIUM SERUM 8.2 mg/dL (8.4-10.2); CREATININE SERUM 4.7 mg/dL (0.6-1.4); GLOM FILT RATE Estimated 15.3 mL/min (>60)
[2017-01-22 07:54] LABS: INR 4.7
[2017-01-23 05:24] LABS: HEMATOCRIT 25.1 % (38.0-50.0); HEMOGLOBIN 8.3 gm/dL (13.0-16.0); MEAN CELL VOLUME 87.5 FL (83-96); MEAN CORPUSCULAR HEMOGLOBIN 28.9 PG (28-34); MEAN PLATELET VOLUME 8.6 FL (6.5-11.5); RED BLOOD COUNT 2.87 X10e (3.90-5.60); RED CELL DISTRIBUTION WIDTH 15.9 % (11.0-15.5); WHITE BLOOD COUNT 11.7 X10e3 (4.0-10.5)
[2017-01-23 05:39] LABS: PROTHROMBIN TIME (PATIENT) 66.4 SECONDS (10.0-11.7)
[2017-01-23 06:01] LABS: INR 6.1
[2017-01-23 06:32] LABS: BUN/CREATININE RATIO 18.97; CREATININE SERUM 3.9 mg/dL (0.6-1.4); GLOM FILT RATE Estimated 19.1 mL/min (>60); POTASSIUM 5.3 mmol/L (3.5-5.1)
[2017-01-23] MEDS ORDERED: PREDNISONE PO (16:15)
[2017-01-23] MEDS ORDERED: SOD BICARBONATE PO (16:16)
[2017-01-23] MEDS ORDERED: FERROUS GLUCON324 M2 PO (16:20)
[2017-01-23] MEDS ORDERED: SANTYL30 GM TOP (16:21)
[2017-01-23] MEDS ORDERED: CLINDAMYCIN HC300 MG PO (16:22)
[2017-01-24 08:58] LABS: COMPLEMENT C3 168 mg/dL (90-180); COMPLEMENT C4 35 mg/dL (16-47)
[2017-01-24 22:55] LABS: ANA SCREEN Negative (Negative); CARDIOLIPIN IGG (LUPUS) <14 GPL (<=14); CARDIOLIPIN IGM (LUPUS) <12 MPL (<=12); DRVVT CONFIRM Negative (Negative); DRVVT MIX INTERP (LUPUS) Not Indicated (()); HEXAGONAL PHASE CONF (LUPUS) Positive (Negative); IMM PT MIX 12.3 sec (<=11.5); IMM PTT LA MIX NOT CORRECTED (()); INR LUPUS 2.6 (()); PROTROMBIN TIME LUPUS 25.2 sec (9.0-11.5); PT (LA MIX STUDY) 25.2 sec (<=11.5); PTT MIX INTERP Has been added (()); PTT-LA 115 sec (<=40); PTT-LA SCREEN (LUPUS) 115 sec (<=40); THROMBIN TIME LUPUS 18 sec (13-19); dRVVT SCREEN (LUPUS) 135 sec (<=45)
== END 2017-01-23 18:37 | disposition home or self-care (01) | DRG 871 ==
LOC: CED 23:36 → CEDOF 01-17 04:49 → C2A 01-17 05:00 → CEDOF 01-17 05:00 → C4C 01-17 05:38 → CEDOF 01-17 05:38 → C4C 01-17 07:26 → C2A 01-22 14:55
PROVIDERS: Emergency Medicine; Internal Medicine; Internal Medicine Nephrology
PROC: 30233N1 Transfusion of Nonautologous Red Blood Cells into Peripheral Vein, Percutaneous Approach (ICD-10-PCS; principal; 2017-01-17)
DX: A41.9 Sepsis, unspecified organism (principal); N17.0 Acute kidney failure with tubular necrosis; E87.2 Acidosis; E44.0 Moderate protein-calorie malnutrition; I13.0 Hypertensive heart and chronic kidney disease with heart failure and stage 1 through stage 4 chronic kidney disease, or unspecified chronic kidney disease; N18.4 Chronic kidney disease, stage 4 (severe); I50.32 Chronic diastolic (congestive) heart failure; L03.116 Cellulitis of left lower limb; L97.929 Non-pressure chronic ulcer of unspecified part of left lower leg with unspecified severity; R11.2 Nausea with vomiting, unspecified; Z86.718 Personal history of other venous thrombosis and embolism; Z86.711 Personal history of pulmonary embolism; Z79.01 Long term (current) use of anticoagulants; E11.22 Type 2 diabetes mellitus with diabetic chronic kidney disease; Z91.013 Allergy to seafood; Z79.4 Long term (current) use of insulin; H40.9 Unspecified glaucoma; E87.5 Hyperkalemia; D50.8 Other iron deficiency anemias; E83.51 Hypocalcemia; E79.0 Hyperuricemia without signs of inflammatory arthritis and tophaceous disease; B95.62 Methicillin resistant Staphylococcus aureus infection as the cause of diseases classified elsewhere; D63.1 Anemia in chronic kidney disease; N28.1 Cyst of kidney, acquired; Z68.39 Body mass index [BMI] 39.0-39.9, adult; E66.01 Morbid (severe) obesity due to excess calories; I87.8 Other specified disorders of veins; M10.9 Gout, unspecified
CPT/HCPCS: 36415; 70450; 71010; 73590; 74176; 76770; 80048; 80053; 80076; 81003; 82274; 82550; 82553; 82570; 82728; 82947; 83540; 83550; 83605; 84100; 84156; 84300; 84443; 84484; 84550; 85025; 85027; 85597; 85598; 85610; 85613; 85670; 85730; 86038; 86039; 86140; 86147; 86160; 86162; 86334; 86850; 86900; 86901; 86923; 87040; 87070; 87077; 87086; 87186; 87205; 87804; 89190; 93971; 94640; 94664; 94760; 96361; 96374; 96375; 99285; J0885; J1815; J2020; J2270; J2405; J2543; P9016